=== PATIENT | female | born 1985 | race Caucasian/White ===

== ENCOUNTER 2018-02-27 14:25 | Emergency (ER) | payer BC ==
--- NOTE | 2018-02-27 15:35 | EDM.PDOC ---
ED HPI GENERAL MEDICAL PROBLEM - General Chief Complaint: Back Pain or Injury Stated Complaint: BACK PAIN Time Seen by Provider: 02/27/18 15:19 Source of Information: Reports: Patient, RN Notes Reviewed History Limitations: Reports: No Limitations - History of Present Illness INITIAL COMMENTS - FREE TEXT/NARRATIVE: The patient states that she was getting ready to lift a heavy object at work around 13:30 today, and reached out towards it, but had not yet actively begun lifting, when she developed lower back pain - the patient indicates her upper lumbar area, bilaterally. She states that it feels like a muscle spasm. The pain is made better if she leans forward, whether she is sitting or standing, and it is made worse if she is upright. The pain does not radiate at all. No urinary symptoms. No prior similar symptoms. The patient states that she took 2 Tylenol around 13:30. The patient does not have a PCP. 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 Lower Back Pain Score (Numeric/FACES): 8 - Related Data Allergies Allergy/AdvReac Type Severity Reaction Status Date / Time No Known Allergies Allergy Verified 02/27/18 14:53 Home Meds: Home Meds Orphenadrine [Norflex] 1 tab PO Q12H PRN #10 tab.er 02/27/18 [Rx] Past Medical History Respiratory History: Reports: Asthma Endocrine/Metabolic History: Reports: Obesity/BMI 30+ - Infectious Disease History Infectious Disease History: Reports: Chicken Pox - Past Surgical History HEENT Surgical History: Reports: Oral Surgery (wisdom teeth extraction), Tonsillectomy Musculoskeletal Surgical History: Reports: ORIF (Left ankle + subsequent removal of hardware) Social & Family History - Tobacco Use Smoking Status *Q: Former Smoker Years of Tobacco use: 15 Packs/Tins Daily: 0.2 Month/Year Tobacco Last Used: Quit Jan 2017 - Caffeine Use Caffeine Use: Reports: Coffee, Energy Drinks, Soda, Tea - Alcohol Use Alcohol Use History: Yes Alcohol Use Frequency: Rarely - Recreational Drug Use Recreational Drug Use: No - Living Situation & Occupation Living situation: Reports: , with Spouse 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 ED EXAM,LOWER BACK PAIN/INJURY - Physical Exam Exam: See Below Exam Limited By: No Limitations General Appearance: Alert, WD/WN, No Apparent Distress Eye Exam: Bilateral Eye: EOMI, Normal Inspection Ears: Normal External Exam, Hearing Grossly Normal Nose: Normal Inspection Throat/Mouth: Normal Inspection, Normal Lips, Normal Voice, No Airway Compromise Head: Atraumatic, Normocephalic Neck: Normal Inspection, Full Range of Motion Respiratory/Chest: No Respiratory Distress, Lungs Clear, Normal Breath Sounds, No Accessory Muscle Use Cardiovascular: Normal Peripheral Pulses, Regular Rate, Rhythm, No Gallop, No JVD, No Murmur, No Rub GI/Abdominal: Normal Bowel Sounds, Soft, Non-Tender, No Organomegaly, No Distention, No Abnormal Bruit, No Mass, Other (Obese) (Female) Exam: Deferred Rectal (Female) Exam: Deferred Back Exam: Normal Inspection, Full Range of Motion, Other (Straight leg raise to about 80, inducing only back pain without radiation, bilaterally). No: CVA Tenderness (L), CVA Tenderness (R), Decreased Range of Motion, Paraspinal Tenderness, Vertebral Tenderness Extremities: Normal Inspection, Normal Range of Motion, Normal Capillary Refill Neurological: Alert, No Motor/Sensory Deficits, Oriented x 3 Psychiatric: Normal Affect Skin Exam: Warm, Dry, Intact, Normal Color, No Rash Course - Vital Signs Last Recorded V/S: Last Vital Signs Temp 36.6 C 02/27/18 14:47 Pulse 61 02/27/18 14:47 Resp 15 02/27/18 14:47 BP 153/124 H 02/27/18 14:47 Pulse Ox 99 02/27/18 14:47 - Orders/Labs/Meds Labs: Laboratory Tests 02/27/18 02/27/18 Range/Units 15:37 15:39 Urine Color Yellow (Yellow) Urine Appearance Clear (Clear) Urine pH 5.5 (5.0-8.0) Ur Specific [place] > or = 1.030 (1.005-1.030) Urine Protein Negative (Negative) Urine Glucose (UA) Negative (Negative) Urine Ketones Negative (Negative) Urine Occult Blood Negative (Negative) Urine Nitrite Negative (Negative) Urine Bilirubin Negative (Negative) Urine Urobilinogen 0.2 (0.2-1.0) Ur Leukocyte Esterase Negative (Negative) Urine RBC 0-5 (0-5) /hpf Urine WBC 0-5 (0-5) /hpf Ur Epithelial Cells 0-5 (0-5) /hpf Urine Bacteria Few (FEW) /hpf Urine Mucus Few (FEW) /hpf Urine HCG, Qual Negative (NEGATIVE) Meds: Medications Discontinued Medications Generic Name Dose Route Start Last Admin Trade Name Nancie PRN Reason Stop Dose Admin Ibuprofen 600 mg 02/27/18 16:27 02/27/18 16:34 Motrin PO 02/27/18 16:28 600 mg ONETIME ONE Administration Orphenadrine Citrate 100 mg 02/27/18 16:24 02/27/18 16:34 Norflex PO 02/27/18 16:25 100 mg ONETIME STA Administration - Re-Assessments/Exams Free Text/Narrative Re-Assessment/Exam: 02/27/18 15:33 The patient appears to have a muscle spasm in her upper lumbar region. Her physical examination is not consistent with that of a herniated intervertebral disc. I've asked the patient to provide a urine sample just to make sure that she does not have a UTI or hematuria, suggestive of a stone, that she is not , but if everything is normal, I will start her on a muscle relaxant. 02/27/18 16:28 The patient's urinalysis is normal, with no suggestion of a UTI or hematuria, and her urine is negative. I have therefore ordered Norflex and ibuprofen, and will discharge the patient home with a prescription for Norflex. Departure - Departure Time of Disposition: 16:28 Disposition: Home, Self-Care 01 Condition: Fair Clinical Impression: Back muscle spasm - Discharge Information *PRESCRIPTION DRUG MONITORING PROGRAM REVIEWED*: Not Applicable *COPY OF PRESCRIPTION DRUG MONITORING REPORT IN PATIENT JACKIE: Not Applicable Prescriptions: Orphenadrine [Norflex] 1 tab PO Q12H PRN #10 tab.er PRN Reason: Muscle Spasm Instructions: Muscle Cramps and Spasms, [id number] Referrals: Irena Perera MD [Physician] - Forms: ED Department Discharge Additional Instructions: You were seen in the emergency room for low back pain that developed while at work. Workup in the ER included a urinalysis and a test, both of which were normal. You do not have a urinary tract infection, and there is no suggestion that you have a kidney stone. You are not . Based on your history, physical examination, and urine studies, the cause of your low back pain is MOST LIKELY due to a muscle spasm. You have been started on muscle relaxant Norflex. A prescription for Norflex has been sent to the [facility] located in the [employer] [facility]. Take one tablet every 12 hours, starting tomorrow, 02/28/2018, as prescribed. You may also take [id number] ibuprofen, 2-3 tablets (400-600 mg) every 8 hours, with food, as needed for discomfort. Get plenty of rest tonight, but then it is imperative that you stay active, even though you may be sore. Swiming is best, but walking is good, too. Do not just lie in bed. If your symptoms do not improve within a few days, please follow-up with Dr. Irena Perera in the clinic. If any other problems, please do not hesitate to return to the ER.
[2018-02-27] MEDS ORDERED: Orphenadrine 100 MG Tab.ER PO STA (16:24)
[2018-02-27] MEDS ORDERED: Ibuprofen 600 MG Tab PO ONE (16:27)
== END 2018-02-27 16:45 | disposition home or self-care (01) ==
LOC: JD.ED 14:25
DX: M62.830 Muscle spasm of back (principal); E66.9 Obesity, unspecified; Z87.891 Personal history of nicotine dependence; X50.0XXA Overexertion from strenuous movement or load, initial encounter
CPT/HCPCS: 81001; 81025; 99283; A9270

== ENCOUNTER 2018-07-29 05:19 | Emergency (ER) | payer BC ==
[2018-07-29] MEDS ORDERED: Ondansetron 4 MG/2 ML SDV IVPUSH ONE (06:03)
[2018-07-29] MEDS ORDERED: HYDROmorphone 1 MG/ML Syringe IVPUSH STA (06:03)
--- NOTE | 2018-07-29 06:06 | EDM.PDOC ---
<Po Murcia - Last Filed: 07/29/18 06:36> ED HPI GENERAL MEDICAL PROBLEM - General Chief Complaint: Flank Pain Stated Complaint: BACK AND SIDE PAIN Time Seen by Provider: 07/29/18 05:31 Source of Information: Reports: Patient, RN Notes Reviewed History Limitations: Reports: No Limitations - History of Present Illness INITIAL COMMENTS - FREE TEXT/NARRATIVE: The patient states that she was woken around 02:30 this morning with right mid back pain, which, after a short while, radiated around to the right upper quadrant of her abdomen. The pain is crampy and sharp in character. It is constant. The patient states that her pain is made much worse by lying prone, otherwise, she has not identified any modifiers. She has nausea, but has not vomited. No recent constipation or diarrhea. No urinary symptoms. No recent fever. No prior similar symptoms. The patient states that she ate some bread and butter around 01:00. The patient has not taken any [id number] or home remedies to try to treat her symptoms. The patient does not have a PCP. - Related Data Allergies Allergy/AdvReac Type Severity Reaction Status Date / Time No Known Allergies Allergy Verified 07/29/18 05:26 Home Meds: Home Meds Desvenlafaxine Succinate [Pristiq ER] 25 mg PO DAILY 07/29/18 [History] Past Medical History Respiratory History: Reports: Asthma Psychiatric History: Reports: Anxiety, Depression, Other (See Below) (Insomnia) Endocrine/Metabolic History: Reports: Obesity/BMI 30+ - Infectious Disease History Infectious Disease History: Reports: Chicken Pox - Past Surgical History HEENT Surgical History: Reports: Oral Surgery (wisdom teeth extraction), Tonsillectomy Musculoskeletal Surgical History: Reports: ORIF (left ankle, with subsequent removal of hardware) Social & Family History - Tobacco Use Smoking Status *Q: Current Every Day Smoker Years of Tobacco use: 7 Packs/Tins Daily: 0.2 - Caffeine Use Caffeine Use: Reports: Coffee - Alcohol Use Alcohol Use History: Yes Alcohol Use Frequency: Rarely - Recreational Drug Use Recreational Drug Use: No - Living Situation & Occupation Living situation: Reports: , with Spouse 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 ED EXAM, GI/ABD - Physical Exam Exam: See Below Exam Limited By: No Limitations General Appearance: Alert, WD/WN, No Apparent Distress Eyes: Bilateral: Normal Appearance, EOMI Ears: Normal External Exam, Hearing Grossly Normal Nose: Normal Inspection Throat/Mouth: Normal Inspection, Normal Lips, Normal Voice, No Airway Compromise Head: Atraumatic, Normocephalic Neck: Normal Inspection, Full Range of Motion Respiratory/Chest: No Respiratory Distress, Lungs Clear, Normal Breath Sounds, No Accessory Muscle Use Cardiovascular: Normal Peripheral Pulses, Regular Rate, Rhythm, No Gallop, No JVD, No Murmur, No Rub GI/Abdominal Exam: Normal Bowel Sounds, Soft, No Organomegaly, No Distention, No Abnormal Bruit, No Mass, Tender (Right upper quadrant only. Bacon positive. Rovsing sign present, but nontender elsewhere.), Other (Obese) (Female) Exam: Deferred Rectal (Female) Exam: Deferred Back Exam: Normal Inspection, Full Range of Motion. No: CVA Tenderness (L), CVA Tenderness (R) (including to the right mid-back) Extremities: Normal Inspection, Normal Range of Motion, Normal Capillary Refill Neurological: Alert, Oriented, Normal Cognition, No Motor/Sensory Deficits Psychiatric: Normal Affect Skin Exam: Warm, Dry, Intact, Normal Color, No Rash Course - Vital Signs Last Recorded V/S: Last Vital Signs Temp 97.5 F 07/29/18 05:25 Pulse 62 07/29/18 05:25 Resp 20 07/29/18 05:25 BP 152/110 H 07/29/18 05:25 Pulse Ox 98 07/29/18 05:25 - Orders/Labs/Meds Orders: Active Orders 24 hr Category Date Time Status Sodium Chloride 0.9% [Normal Saline] 1,000 ml Med 07/29/18 06:15 Active IV ASDIRECTED Medication Orders Sodium Chloride (Normal Saline) 1,000 mls @ 150 mls/hr IV ASDIRECTED LENNOX Last Admin: 07/29/18 06:26 Dose: 150 mls/hr Labs: Laboratory Tests 07/29/18 07/29/18 07/29/18 Range/Units 05:32 05:32 06:35 WBC 8.02 (3.98-10.04) K/mm3 RBC 5.34 H (3.98-5.22) M/mm3 Hgb 14.2 (11.2-15.7) gm/L Hct 45.5 H (34.1-44.9) % MCV 85.2 (79.4-94.8) fl MCH 26.6 (25.6-32.2) pg MCHC 31.2 L (32.2-35.5) g/dl RDW Std Deviation 46.3 (36.4-46.3) fL Plt Count 255 (182-369) K/mm3 MPV 10.8 (9.4-12.3) fl Neutrophils % (Manual) 60 (40-60) % Band Neutrophils % 0 (0-10) % Lymphocytes % (Manual) 27 (20-40) % Atypical Lymphs % 0 % Monocytes % (Manual) 7 (2-10) % Eosinophils % (Manual) 6 H (0.7-5.8) % Basophils % (Manual) 0 L (0.1-1.2) Platelet Estimate Adequate RBC Morph Comment Normal Sodium (136-145) mEq/L Potassium (3.5-5.1) mEq/L Chloride (98-107) mEq/L Carbon Dioxide (21-32) mEq/L Anion Gap (5-15) BUN (7-18) mg/dL Creatinine (0.55-1.02) mg/dL Est Cr Clr Drug Dosing mL/min Estimated GFR (MDRD) (>60) mL/min BUN/Creatinine Ratio (14-18) Glucose (74-106) mg/dL Calcium (8.5-10.1) mg/dL Total Bilirubin (0.2-1.0) mg/dL AST (15-37) U/L ALT (14-59) U/L Alkaline Phosphatase (46-116) U/L Total Protein (6.4-8.2) g/dl Albumin (3.4-5.0) g/dl Globulin gm/dL Albumin/Globulin Ratio (1-2) Lipase (73-393) U/L Urine Color Yellow (Yellow) Urine Appearance Clear (Clear) Urine pH 5.5 (5.0-8.0) Ur Specific [place] > or = 1.030 (1.005-1.030) Urine Protein Negative (Negative) Urine Glucose (UA) Negative (Negative) Urine Ketones Negative (Negative) Urine Occult Blood Trace-lysed H (Negative) Urine Nitrite Negative (Negative) Urine Bilirubin Negative (Negative) Urine Urobilinogen 0.2 (0.2-1.0) Ur Leukocyte Esterase Negative (Negative) Urine RBC 5-10 H (0-5) /hpf Urine WBC 0-5 (0-5) /hpf Ur Epithelial Cells 5-10 H (0-5) /hpf Amorphous Sediment Few H (NOT SEEN) /hpf Urine Bacteria Few (FEW) /hpf Hyaline Casts 0-5 (0-5) /lpf Urine Mucus Few (FEW) /hpf Urine HCG, Qual Negative (NEGATIVE) 07/29/18 Range/Units 06:35 WBC (3.98-10.04) K/mm3 RBC (3.98-5.22) M/mm3 Hgb (11.2-15.7) gm/L Hct (34.1-44.9) % MCV (79.4-94.8) fl MCH (25.6-32.2) pg MCHC (32.2-35.5) g/dl RDW Std Deviation (36.4-46.3) fL Plt Count (182-369) K/mm3 MPV (9.4-12.3) fl Neutrophils % (Manual) (40-60) % Band Neutrophils % (0-10) % Lymphocytes % (Manual) (20-40) % Atypical Lymphs % % Monocytes % (Manual) (2-10) % Eosinophils % (Manual) (0.7-5.8) % Basophils % (Manual) (0.1-1.2) Platelet Estimate RBC Morph Comment Sodium 142 (136-145) mEq/L Potassium 3.5 (3.5-5.1) mEq/L Chloride 108 H (98-107) mEq/L Carbon Dioxide 25 (21-32) mEq/L Anion Gap 12.5 (5-15) BUN 12 (7-18) mg/dL Creatinine 0.9 (0.55-1.02) mg/dL Est Cr Clr Drug Dosing 74.92 mL/min Estimated GFR (MDRD) > 60 (>60) mL/min BUN/Creatinine Ratio 13.3 L (14-18) Glucose 103 (74-106) mg/dL Calcium 8.4 L (8.5-10.1) mg/dL Total Bilirubin 0.3 (0.2-1.0) mg/dL AST 17 (15-37) U/L ALT 38 (14-59) U/L Alkaline Phosphatase 79 (46-116) U/L Total Protein 6.6 (6.4-8.2) g/dl Albumin 3.4 (3.4-5.0) g/dl Globulin 3.2 gm/dL Albumin/Globulin Ratio 1.1 (1-2) Lipase 128 (73-393) U/L Urine Color (Yellow) Urine Appearance (Clear) Urine pH (5.0-8.0) Ur Specific [place] (1.005-1.030) Urine Protein (Negative) Urine Glucose (UA) (Negative) Urine Ketones (Negative) Urine Occult Blood (Negative) Urine Nitrite (Negative) Urine Bilirubin (Negative) Urine Urobilinogen (0.2-1.0) Ur Leukocyte Esterase (Negative) Urine RBC (0-5) /hpf Urine WBC (0-5) /hpf Ur Epithelial Cells (0-5) /hpf Amorphous Sediment (NOT SEEN) /hpf Urine Bacteria (FEW) /hpf Hyaline Casts (0-5) /lpf Urine Mucus (FEW) /hpf Urine HCG, Qual (NEGATIVE) Meds: Medications Generic Name Dose Route Start Last Admin Trade Name Freq PRN Reason Stop Dose Admin Sodium Chloride 1,000 mls @ 150 mls/hr 07/29/18 06:15 07/29/18 06:26 Normal Saline IV 150 mls/hr ASDIRECTED LENNOX Administration Discontinued Medications Generic Name Dose Route Start Last Admin Trade Name Freq PRN Reason Stop Dose Admin Hydromorphone HCl 1 mg 07/29/18 06:03 07/29/18 06:26 Dilaudid IVPUSH 07/29/18 06:04 1 mg ONETIME STA Administration Iopamidol 100 ml 07/29/18 06:21 07/29/18 07:45 Isovue-300 (61%) IVPUSH 07/29/18 06:22 100 ml ONETIME ONE Administration Ondansetron HCl 4 mg 07/29/18 06:03 07/29/18 06:26 Zofran IVPUSH 07/29/18 06:04 4 mg ONETIME ONE Administration - Re-Assessments/Exams Free Text/Narrative Re-Assessment/Exam: 07/29/18 06:04 There was a delay in ordering tests, as I had to go to a rapid response. Based on the patient's history and physical examination, her right upper quadrant abdominal tenderness radiating through to her right mid-back is most likely due to cholecystitis. I have ordered blood work, including a lipase, to exclude pancreatitis, as well as a urinalysis to exclude a ureterolith. I have ordered a CT scan of the abdomen and pelvis, which may not confirm the diagnosis , but will rule out other causes. If all is negative, the patient can then proceed to an outpatient evaluation, including an ultrasound of the right upper quadrant and a HIDA scan. Unfortunately, because of a shortage of ultrasound technicians, I am not able to order an ultrasound of the right upper quadrant from the emergency department for evaluation for cholecystitis. The patient will be given Dilaudid, Zofran, and IV fluid. 07/29/18 07:[address] Jo Alford, and care of the patient turned over to him at this time, for change of shift. Departure - Departure Disposition: Home, Self-Care 01 Clinical Impression: Polycystic kidney Abdominal pain Qualifiers: Abdominal location: upper abdomen, unspecified Qualified Code(s): R10.10 - Upper abdominal pain, unspecified - Discharge Information Instructions: Polycystic Kidney Disease, Adult, Abdominal Pain, Adult, Easy-to- Read Referrals: PCP,None [Primary Care Provider] - Forms: ED Department Discharge, ED Return to Work/School Form Additional Instructions: rest, clear liquids until this afternoon, than very careful bland diet as tolerated, avoid fatty foods for now. US of Gallbladder early next week, Radiology will call you Tuesday morning to set up a time for that, nothing to eat after midnight the day of your ultrasound. Follow up with you clinic provider 1 to 2 days after your US for recheck and results. Your CT also did show numerous cyst of your R kidney, that is not likely what caused your pain this morning. Do ask your provider for a Urology consult. You may take tylenol and alternate with ibuprofen if needed for further discomfort. <Jared Alford - Last Filed: 07/29/18 09:09> Course - Re-Assessments/Exams Free Text/Narrative Re-Assessment/Exam: 07/29/18 09:06 Have assumed care from Dr Murcia after change of shift. CT of abd shows a polycytic R kidney, probable small stone GB. Her sx and findings on initial exam strongly suggest GB as source of her discomfort this morning. Pain is now gone, abd now soft and nontender, Labs nl. Have written order for outpatient US of GB. Discharge instr. as documented. Departure - Departure Time of Disposition: 22:25 Condition: Fair
[2018-07-29] MEDS ORDERED: Sodium Chloride 0.9% 1,000 ML IV SCH (06:15)
[2018-07-29] MEDS ORDERED: Iopamidol 612 MG/ML 100 ML Bottle IVPUSH ONE (06:21)
--- NOTE | 2018-07-29 08:17 | CT ---
CT abdomen and pelvis Technique: Multiple axial sections were obtained from above the dome of the diaphragm inferiorly through the pubic symphysis. Intravenous and oral contrast was utilized. Delayed images were also obtained through the abdomen and pelvis. Comparison: No prior abdominal imaging. Findings: Right kidney is almost completely replaced with cysts. The cysts cause enlargement of the right kidney with a length of approximately excretion into 16.4 cm. Delayed images shows a small amount of contrast excretion into the collecting system. Left kidney appears normal in size. On delayed images of the left kidney shows excretion into a nondilated ureter with contrast also seen within the bladder. No cystic change is noted within the left kidney. Small portion of the visualized lung bases are clear. Liver contains no focal abnormality. Spleen appears within normal limits. Adrenal glands show no nodule. Pancreas is normal. Gallbladder shows a small intraluminal abnormality most likely representing small gallstone. Aorta shows no aneurysm. No retroperitoneal adenopathy or mesenteric abnormalities are seen. No pelvic mass or adenopathy is seen. Uterus is enlarged and lobulated in appearance compatible with numerous fibroids. Uterus has a length of 17.6 cm. No inflammatory changes seen. No free fluid is seen. Appendix is seen and appears normal in size. Bone window settings were reviewed which appear within normal limits for the patient's age. Impression: 1. Right kidney is enlarged and almost completely replaced with cysts. Majority of contrast excretion occurs from the left kidney which appears normal by CT examination. 2. Enlarged uterus due to diffuse fibroid change. 3. Small gallstone. 4. No additional abnormality is seen on CT study of the abdomen and pelvis. Diagnostic code #3
== END 2018-07-29 09:06 | disposition home or self-care (01) ==
LOC: JD.ED 05:19
DX: Q61.3 Polycystic kidney, unspecified (principal); R10.10 Upper abdominal pain, unspecified; F17.210 Nicotine dependence, cigarettes, uncomplicated; Z79.899 Other long term (current) drug therapy
CPT/HCPCS: 36415; 74177; 80053; 81001; 81025; 83690; 85007; 85027; 96361; 96374; 96375; 99284; J1170; J2405; J7040; Q9967

== ENCOUNTER 2018-09-12 00:31 | Emergency (ER) | payer BC ==
[2018-09-12] MEDS ORDERED: Hyoscyamine 0.125 MG Tab.SL SL ONE ×2 (00:56→01:02)
[2018-09-12] MEDS ORDERED: Metoclopramide 10 MG/2 ML SDV IVPUSH ONE (00:57)
[2018-09-12] MEDS ORDERED: HYDROmorphone 1 MG/ML Syringe IVPUSH ONE (00:58)
[2018-09-12] MEDS ORDERED: Dextrose 5%-0.9% NaCl 1,000 ML IV SCH (01:00)
[2018-09-12] MEDS ORDERED: Ketorolac 30 MG/ML SDV IVPUSH SCH (01:00)
--- NOTE | 2018-09-12 01:01 | EDM.PDOC ---
ED HPI GENERAL MEDICAL PROBLEM - General Chief Complaint: Abdominal Pain Stated Complaint: RIGHT SIDE PAIN Time Seen by Provider: 09/12/18 00:50 Source of Information: Reports: Patient, Family (friend) History Limitations: Reports: No Limitations - History of Present Illness INITIAL COMMENTS - FREE TEXT/NARRATIVE: 32-year-old female presents to the ED with acute onset of severe right upper quadrant abdominal pain underneath her right costal margin radiating along the costal margin to her back to the infra scapular area. Pain came on approximately 2300 hrs. She ate last at 2100 hrs. and had chili. Patient was recently diagnosed with gallstones on August 02 by ultrasound. It was suggested to be present on CT scan done July 30 of this year. The CT scan revealed that she has a very large polycystic right kidney which is nearly completely destroyed by cysts. She has seen Dr. Ray--urologist in [place] and is scheduled to have her right kidney removed with the aid of the [employer] robot in the near future. She has not arranged follow-up for cholecystectomy yet. She is nauseated but is unable to vomit. She did take Zofran 8 mg sublingually without any relief of the nausea. Pain is constant with it intermittently low- grade colicky component. Bowel function has been normal with normal color. Onset: Sudden Onset Date: 09/11/18 Onset Time: 23:00 Duration: Hour(s):, Getting Worse Location: Reports: Abdomen (right upper quadrant of the abdomen.) Quality: Reports: Ache, Pressure, Other (Colicky component to the deep constant aching pain.) Severity: Severe Improves with: Reports: None Worsens with: Reports: None (9 out of 10) Context: Reports: Other (Started about 2 hours after eating some chili last evening). Denies: Activity, Exercise, Lifting, Sick Contact, Trauma Associated Symptoms: Reports: Chest Pain, Loss of Appetite, Nausea/Vomiting. Denies: Confusion, Cough, cough w sputum, Fever/Chills, Headaches, Malaise, Rash , Seizure, Shortness of Breath (Nausea without vomiting), Syncope, Weakness Treatments BAGGAGE CHECKER: Reports: Other (see below) Right Upper Abdominal Pain Score (Numeric/FACES): 8 - Related Data Allergies Allergy/AdvReac Type Severity Reaction Status Date / Time No Known Allergies Allergy Verified 09/12/18 00:51 Home Meds: Home Meds Desvenlafaxine Succinate [Pristiq ER] 25 mg PO DAILY 07/29/18 [History] Hyoscyamine Sulfate [Levsin-Sl] 0.125 mg SL ASDIRECTED #8 tab.subl 09/12/18 [Rx] Past Medical History Respiratory History: Reports: Asthma Gastrointestinal History: Reports: Cholelithiasis (Diagnosed with cholelithiasis suspected on CT scan done July 30 but confirmed by ultrasound to show multiple gallstones on August 02 of this year.) Genitourinary History: Reports: Other (See Below) (Recently discovered on July 30 of this year by CT exam to have severe polycystic right kidney. It appears that the kidney is not producing any significant amount of urine. It needs to be resected and she has seen urology in [place] in this regard.) Psychiatric History: Reports: Anxiety, Depression Endocrine/Metabolic History: Reports: Obesity/BMI 30+ - Infectious Disease History Infectious Disease History: Reports: Chicken Pox - Past Surgical History HEENT Surgical History: Reports: Oral Surgery, Tonsillectomy Musculoskeletal Surgical History: Reports: ORIF Social & Family History - Tobacco Use Smoking Status *Q: Current Every Day Smoker Years of Tobacco use: 10 Packs/Tins Daily: 0.2 - Caffeine Use Caffeine Use: Reports: Coffee - Living Situation & Occupation Living situation: Reports: , with Spouse 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 Denies: Fever, Chills, Malaise, Weakness, Fatigue, Weight Loss HEENT: Reports: No Symptoms Respiratory: Reports: Shortness of Breath Cardiovascular: Reports: No Symptoms (Then take a full deep breath as it aggravates the right upper quadrant abdominal pain) Endocrine: Reports: No Symptoms GI/Abdominal: Reports: Abdominal Pain (See history of present illness.) : Reports: No Symptoms Musculoskeletal: Reports: No Symptoms Skin: Reports: No Symptoms Neurological: Reports: No Symptoms Psychiatric: Reports: No Symptoms Hematologic/Lymphatic: Reports: No Symptoms Immunologic: Reports: No Symptoms ED EXAM, GI/ABD - Physical Exam Exam: See Below Exam Limited By: No Limitations General Appearance: Alert, WD/WN, Moderate Distress Eyes: Bilateral: Normal Appearance (No scleral icterus.) Respiratory/Chest: No Respiratory Distress, Lungs Clear, Normal Breath Sounds, No Accessory Muscle Use, Respiratory Distress Cardiovascular: Normal Peripheral Pulses, Regular Rate, Rhythm, No Edema, No Gallop, No Murmur, No Rub GI/Abdominal Exam: Soft, No Mass, Guarding (Very tender to palpation right upper quadrant of the abdomen with positive Bacon sign), Tender, Abnormal Bowel Sounds (Bowel sounds are decreased throughout the abdomen.), Other (I tried to palpate her kidney but her abdominal orifice quite large and I could not definitively palpate a kidney mass.). No: Rebound Back Exam: Normal Inspection, CVA Tenderness (R). No: Full Range of Motion, CVA Tenderness (L), Decreased Range of Motion Extremities: Normal Inspection, Normal Range of Motion, Non-Tender, No Pedal Edema Neurological: Alert, Oriented, CN II-XII Intact, Normal Cognition Psychiatric: Normal Affect, Normal Mood Skin Exam: Warm, Dry, Intact, Normal Color, No Rash Course - Vital Signs Last Recorded V/S: Last Vital Signs Temp 35.8 C 09/12/18 00:48 Pulse 84 09/12/18 00:48 Resp 16 09/12/18 00:48 BP 161/100 H 09/12/18 00:48 Pulse Ox 98 09/12/18 00:48 - Orders/Labs/Meds Orders: Active Orders 24 hr Category Date Time Status Dextrose 5%-0.9% NaCl [Dextrose 5%-Normal Saline] 1,000 Med 09/12/18 01:00 Active ml IV ASDIRECTED Ketorolac [Toradol] Med 09/12/18 01:00 Active 30 mg IVPUSH ONETIME Medication Orders Dextrose/Sodium Chloride (Dextrose 5%-Normal Saline) 1,000 mls @ 150 mls/hr IV ASDIRECTED LENNOX Last Admin: 09/12/18 01:05 Dose: 150 mls/hr Ketorolac Tromethamine (Toradol) 30 mg IVPUSH ONETIME LENNOX Last Admin: 09/12/18 01:10 Dose: 30 mg Labs: Laboratory Tests 09/12/18 09/12/18 Range/Units 01:05 01:05 WBC 12.44 H (3.98-10.04) K/mm3 RBC 5.17 (3.98-5.22) M/mm3 Hgb 13.6 (11.2-15.7) gm/L Hct 43.2 (34.1-44.9) % MCV 83.6 (79.4-94.8) fl MCH 26.3 (25.6-32.2) pg MCHC 31.5 L (32.2-35.5) g/dl RDW Std Deviation 46.0 (36.4-46.3) fL Plt Count 277 (182-369) K/mm3 MPV 10.9 (9.4-12.3) fl Neutrophils % (Manual) 55 (40-60) % Band Neutrophils % 0 (0-10) % Lymphocytes % (Manual) 34 (20-40) % Atypical Lymphs % 0 % Monocytes % (Manual) 8 (2-10) % Eosinophils % (Manual) 3 (0.7-5.8) % Basophils % (Manual) 0 L (0.1-1.2) Platelet Estimate Adequate Plt Morphology Comment Normal Hypochromasia 1+ slight RBC Morph Comment Not Reportable Sodium 141 (136-145) mEq/L Potassium 3.9 (3.5-5.1) mEq/L Chloride 108 H (98-107) mEq/L Carbon Dioxide 23 (21-32) mEq/L Anion Gap 13.9 (5-15) BUN 13 (7-18) mg/dL Creatinine 0.9 (0.55-1.02) mg/dL Est Cr Clr Drug Dosing 71.63 mL/min Estimated GFR (MDRD) > 60 (>60) mL/min BUN/Creatinine Ratio 14.4 (14-18) Glucose 110 H (74-106) mg/dL Calcium 9.0 (8.5-10.1) mg/dL Total Bilirubin 0.3 (0.2-1.0) mg/dL GGT 21 (5-55) U/L AST 21 (15-37) U/L ALT 47 (14-59) U/L Alkaline Phosphatase 72 (46-116) U/L C-Reactive Protein 1.9 H* (<1.0) mg/dL Total Protein 6.7 (6.4-8.2) g/dl Albumin 3.6 (3.4-5.0) g/dl Globulin 3.1 gm/dL Albumin/Globulin Ratio 1.2 (1-2) Amylase 43 (25-115) U/L Meds: Medications Generic Name Dose Route Start Last Admin Trade Name Nancie PRN Reason Stop Dose Admin Dextrose/Sodium Chloride 1,000 mls @ 150 mls/hr 09/12/18 01:00 09/12/18 01:05 Dextrose 5%-Normal Saline IV 150 mls/hr ASDIRECTED LENNOX Administration Ketorolac Tromethamine 30 mg 09/12/18 01:00 09/12/18 01:10 Toradol IVPUSH 30 mg ONETIME LENNOX Administration Discontinued Medications Generic Name Dose Route Start Last Admin Trade Name Nancie PRN Reason Stop Dose Admin Hydromorphone HCl 1 mg 09/12/18 00:58 09/12/18 01:08 Dilaudid IVPUSH 09/12/18 00:59 1 mg ONETIME ONE Administration Hyoscyamine 0.125 mg 09/12/18 00:56 09/12/18 01:06 Hyomax-Sl SL 09/12/18 00:57 0.125 mg ONETIME ONE Administration Hyoscyamine 0.125 mg 09/12/18 01:02 09/12/18 01:12 Hyomax-Sl SL 09/12/18 01:03 0.125 mg ONETIME ONE Administration Metoclopramide HCl 7.5 mg 09/12/18 00:57 09/12/18 01:06 Reglan IVPUSH 09/12/18 00:58 7.5 mg ONETIME ONE Administration - Radiology Interpretation Free Text/Narrative:: 32-year-old female presents to the ED with acute onset of severe right upper quadrant abdominal pain under her costal margin radiating along the back to the infrascapular area characteristic of biliary colic. Patient was recently diagnosed with gallstones on July [address] scan and confirmed by ultrasound August 02 of this year. She was also discovered to have a severe polycystic right kidney which needs to be resected and she has already had 6 sought out urology consultation in this regard. She ate chili about 2100 hrs. and developed pain 2 hours later and her pain is characteristic of pericolic as has her examination of the abdomen with acute tenderness of the right upper quadrant under the costal margin with a positive Bacon's sign. Plan Levsin 0.125 mg sublingual now and repeat again in 6-7 minutes. IV will be established with D5 normal saline 150 mils per hour. Will be given Dilaudid 1 mg IV with Reglan 7.5 mg IV and Toradol 30 mg IV. Routine labs including serum amylase and GGT to be obtained - Re-Assessments/Exams Free Text/Narrative Re-Assessment/Exam: 09/12/18 01:42 Patient reports pain is pretty well gone. No further nausea. Leaves the Levsin tablets did help significantly relieve her pain. Labs are still pending. 09/12/18 02:17 White count is elevated at 12.44. Differential shows 55% neutrophils and no band cells. Hemoglobin is 13.6 with hematocrit of 43.2. Bili count is 277,000. Sodium is 141 with a potassium of 3.9. Chloride is 108 with a bicarbonate of 23. And a gap is 13.9. BUN is 13 with a creatinine of 0.9. GFR remains greater than 60. Glucose is 110. Calcium is 9.0. Liver function is normal with a bilirubin of 0.3 GGT is 21. Alk phosphatase is 72 showing no signs of biliary tree obstruction. Amylase is 43 C-reactive protein is mildly elevated at 1.9. Total protein is 6.7 with an albumin fraction of 3.6. Repeat dominant examination reveals that she is pretty well pain free. She will therefore be discharged to home since there is no evidence of biliary tree obstruction. She was told that her kidney will have to come out through an open procedure not with the aid of [employer] robot. There is therefore that she could have her gallbladder removed by general surgery at the same time she has her nephrectomy. It was probably unlikely that she could have a laparoscopic cholecystectomy is the cystic kidney would obstruct visualization of the gallbladder. Departure - Departure Time of Disposition: 02:22 Disposition: Home, Self-Care 01 Condition: Fair Clinical Impression: Recurrent biliary colic Abdominal pain Qualifiers: Abdominal location: upper abdomen, unspecified Qualified Code(s): R10.10 - Upper abdominal pain, unspecified - Discharge Information *PRESCRIPTION DRUG MONITORING PROGRAM REVIEWED*: Not Applicable *COPY OF PRESCRIPTION DRUG MONITORING REPORT IN PATIENT JACKIE: Not Applicable Prescriptions: Hyoscyamine Sulfate [Levsin-Sl] 0.125 mg SL ASDIRECTED #8 tab.subl Instructions: Cholelithiasis, [id number] Referrals: PCP,None [Primary Care Provider] - Forms: ED Department Discharge, ED Return to Work/School Form Additional Instructions: Evaluation the emergency room this morning in regards to acute onset of severe right upper quadrant abdominal pain radiating around to your back characteristic of gallbladder attack. Recent investigations by way of CT scan and ultrasound confirm that she do have numerous gallstones in the gallbladder. He also has a severely polycystic right kidney which would obstruct the ability to remove the gallbladder laparoscopically. Examination today was compatible with acute gallbladder attack. Lab tests revealed no significant abnormalities or evidence of biliary tree obstruction. Treated with intravenous fluids as well as Dilaudid 1 mg with Reglan 7.5 mg for pain and nausea relief and Toradol 30 mg. He also received 2 tablets of Levsin under the tongue which did seem to alleviate a good portion of your pain. I will write a prescription for this medication to be used if you develop another attack. 1 tablet initially and if only partial improvement or relief of pain in the in 10 minutes may repeat that one tablet. Taking more than 2 tablets usually does ineffectual. Of course follow-up with surgeons to planned to have your kidney and gallbladder removed. - My Orders Last 24 Hours: My Active Orders 09/12/18 01:00 Dextrose 5%-0.9% NaCl [Dextrose 5%-Normal Saline] 1,000 ml IV ASDIRECTED Ketorolac [Toradol] 30 mg IVPUSH ONETIME - Assessment/Plan Last 24 Hours: My Active Orders 09/12/18 01:00 Dextrose 5%-0.9% NaCl [Dextrose 5%-Normal Saline] 1,000 ml IV ASDIRECTED Ketorolac [Toradol] 30 mg IVPUSH ONETIME
== END 2018-09-12 02:46 | disposition home or self-care (01) ==
LOC: JD.ED 00:31
DX: K80.50 Calculus of bile duct without cholangitis or cholecystitis without obstruction (principal); F17.210 Nicotine dependence, cigarettes, uncomplicated; F41.9 Anxiety disorder, unspecified; F32.9 Major depressive disorder, single episode, unspecified; J45.909 Unspecified asthma, uncomplicated; Z79.899 Other long term (current) drug therapy
CPT/HCPCS: 36415; 80053; 82150; 82977; 85007; 85027; 86140; 96361; 96374; 96375; 99284; A9270; J1170; J1885; J2765; J7042

== ENCOUNTER 2018-11-13 13:08 | Emergency (ER) | payer BC ==
--- NOTE | 2018-11-13 13:38 | EDM.PDOC ---
ED HPI GENERAL MEDICAL PROBLEM - General Chief Complaint: Abdominal Pain Stated Complaint: UPPER ABDOMINAL PAIN Time Seen by Provider: 11/13/18 13:35 - History of Present Illness INITIAL COMMENTS - FREE TEXT/NARRATIVE: 33-year-old female presents emergency room with abdominal pain. This is been getting worse since yesterday the patient has cholelithiasis and is scheduled for cholecystectomy this coming Tuesday along with a right-sided nephrectomy due to a dysfunctional kidney secondary to multiple kidney cysts the patient is unsure of the exact terminology they used. She's had several gallbladder attacks over the last several months. She takes intermittent hycosamine for this and it hasn't helped this time. She denies any fevers has chills when the pain gets bad. She denies this time Treatments CLOSING AGENT: Reports: Other Medication(s) Other Treatments CLOSING AGENT: hydrocodone Right Upper Abdomen Pain Score (Numeric/FACES): 8 - Related Data Allergies Allergy/AdvReac Type Severity Reaction Status Date / Time No Known Allergies Allergy Verified 11/13/18 13:24 Home Meds: Home Meds Acetaminophen/HYDROcodone [Mason 325-5 MG] 1 - 2 tab PO Q6H PRN #15 tablet 11/13 [Rx] Hyoscyamine Sulfate [Levsin-Sl] 0.125 mg SL ASDIRECTED PRN 11/13/18 [History] Lisinopril 10 mg PO DAILY 11/13/18 [History] Ondansetron [Zofran ODT] 4 mg PO Q6H PRN #10 tab.dis 11/13/18 [Rx] Past Medical History Respiratory History: Reports: Asthma Gastrointestinal History: Reports: Cholelithiasis (Diagnosed with cholelithiasis suspected on CT scan done July 30 but confirmed by ultrasound to show multiple gallstones on August 02 of this year.) Genitourinary History: Reports: Other (See Below) (Recently discovered on July 30 of this year by CT exam to have severe polycystic right kidney. It appears that the kidney is not producing any significant amount of urine. It needs to be resected and she has seen urology in [place] in this regard.) Psychiatric History: Reports: Anxiety, Depression Endocrine/Metabolic History: Reports: Obesity/BMI 30+ - Infectious Disease History Infectious Disease History: Reports: Chicken Pox - Past Surgical History HEENT Surgical History: Reports: Oral Surgery, Tonsillectomy Musculoskeletal Surgical History: Reports: ORIF Social & Family History - Tobacco Use Smoking Status *Q: Current Every Day Smoker Years of Tobacco use: 10 Packs/Tins Daily: 1 - Caffeine Use Caffeine Use: Reports: None - Recreational Drug Use Recreational Drug Use: No - Living Situation & Occupation Living situation: Reports: , with Spouse 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 Denies: Fever HEENT: Reports: No Symptoms Respiratory: Reports: No Symptoms Cardiovascular: Reports: No Symptoms Endocrine: Reports: No Symptoms GI/Abdominal: Reports: Abdominal Pain, Nausea. Denies: Constipation, Diarrhea, Vomiting : Reports: No Symptoms Musculoskeletal: Reports: No Symptoms Skin: Reports: No Symptoms Neurological: Reports: No Symptoms ED EXAM, GI/ABD - Physical Exam Exam: See Below Exam Limited By: No Limitations General Appearance: Alert, No Apparent Distress Head: Atraumatic, Normocephalic Neck: Normal Inspection, Supple, Non-Tender, Full Range of Motion Respiratory/Chest: No Respiratory Distress, Lungs Clear, Normal Breath Sounds Cardiovascular: Regular Rate, Rhythm, No Edema, No Murmur GI/Abdominal Exam: Normal Bowel Sounds, Soft, Tender, Other (Right upper quadrant discomfort with palpation more so in the right upper quadrant minimal in epigastric region left upper quadrant normal as is the lower quadrants). No : Guarding, Rigid, Rebound Back Exam: Normal Inspection, Other (She does describe the pain is coming from her back and radiating to the right upper quadrant. This is typical for her.). No: CVA Tenderness (L), CVA Tenderness (R) Course - Vital Signs Last Recorded V/S: Last Vital Signs Temp 36.5 C 11/13/18 13:20 Pulse 66 11/13/18 13:20 Resp 20 11/13/18 13:20 BP 141/100 H 11/13/18 13:20 Pulse Ox 97 11/13/18 13:20 - Orders/Labs/Meds Orders: Active Orders 24 hr Category Date Time Status BASIC METABOLIC PANEL,BMP [CHEM] Stat Lab 11/13/18 14:25 Results HEPATIC FUNCTION PANEL,HFP [CHEM] Stat Lab 11/13/18 14:25 Results LIPASE [CHEM] Stat Lab 11/13/18 14:25 Results Sodium Chloride 0.9% [Normal Saline] 1,000 ml Med 11/13/18 14:00 Active IV ASDIRECTED Medication Orders Sodium Chloride (Normal Saline) 1,000 mls @ 150 mls/hr IV ASDIRECTED LENNOX Last Admin: 11/13/18 14:42 Dose: 150 mls/hr Labs: Laboratory Tests 11/13/18 11/13/18 11/13/18 Range/Units 14:25 14:25 15:48 WBC 8.86 (3.98-10.04) K/mm3 RBC 5.05 (3.98-5.22) M/mm3 Hgb 13.2 (11.2-15.7) gm/L Hct 41.5 (34.1-44.9) % MCV 82.2 (79.4-94.8) fl MCH 26.1 (25.6-32.2) pg MCHC 31.8 L (32.2-35.5) g/dl RDW Std Deviation 48.9 H (36.4-46.3) fL Plt Count 276 (182-369) K/mm3 MPV 10.8 (9.4-12.3) fl Neutrophils % (Manual) 60 (40-60) % Band Neutrophils % 0 (0-10) % Lymphocytes % (Manual) 27 (20-40) % Atypical Lymphs % 0 % Monocytes % (Manual) 4 (2-10) % Eosinophils % (Manual) 8 H (0.7-5.8) % Basophils % (Manual) 1 (0.1-1.2) Platelet Estimate Adequate RBC Morph Comment Normal Sodium 142 (136-145) mEq/L Potassium 3.8 (3.5-5.1) mEq/L Chloride 106 (98-107) mEq/L Carbon Dioxide 23 (21-32) mEq/L Anion Gap 16.8 H (5-15) BUN 14 (7-18) mg/dL Creatinine 0.8 (0.55-1.02) mg/dL Est Cr Clr Drug Dosing 83.51 mL/min Estimated GFR (MDRD) > 60 (>60) mL/min BUN/Creatinine Ratio 17.5 (14-18) Glucose 107 H (74-106) mg/dL Calcium 9.3 (8.5-10.1) mg/dL Total Bilirubin 0.4 (0.2-1.0) mg/dL AST 30 (15-37) U/L ALT 42 (14-59) U/L Alkaline Phosphatase 73 (46-116) U/L Total Protein 6.8 (6.4-8.2) g/dl Albumin 3.7 (3.4-5.0) g/dl Globulin 3.1 gm/dL Albumin/Globulin Ratio 1.2 (1-2) Lipase 127 (73-393) U/L Urine Color Yellow (Yellow) Urine Appearance Clear (Clear) Urine pH 5.5 (5.0-8.0) Ur Specific Mccammon > or = 1.030 (1.005-1.030) Urine Protein Negative (Negative) Urine Glucose (UA) Negative (Negative) Urine Ketones Negative (Negative) Urine Occult Blood Negative (Negative) Urine Nitrite Negative (Negative) Urine Bilirubin Negative (Negative) Urine Urobilinogen 0.2 (0.2-1.0) Ur Leukocyte Esterase Negative (Negative) Urine RBC 0-5 (0-5) /hpf Urine WBC 0-5 (0-5) /hpf Ur Squamous Epith Cells 0-5 (0-5) /hpf Urine Bacteria Few (FEW) /hpf Urine Mucus Moderate H (FEW) /hpf Urine HCG, Qual (NEGATIVE) 11/13/18 Range/Units 15:48 WBC (3.98-10.04) K/mm3 RBC (3.98-5.22) M/mm3 Hgb (11.2-15.7) gm/L Hct (34.1-44.9) % MCV (79.4-94.8) fl MCH (25.6-32.2) pg MCHC (32.2-35.5) g/dl RDW Std Deviation (36.4-46.3) fL Plt Count (182-369) K/mm3 MPV (9.4-12.3) fl Neutrophils % (Manual) (40-60) % Band Neutrophils % (0-10) % Lymphocytes % (Manual) (20-40) % Atypical Lymphs % % Monocytes % (Manual) (2-10) % Eosinophils % (Manual) (0.7-5.8) % Basophils % (Manual) (0.1-1.2) Platelet Estimate RBC Morph Comment Sodium (136-145) mEq/L Potassium (3.5-5.1) mEq/L Chloride (98-107) mEq/L Carbon Dioxide (21-32) mEq/L Anion Gap (5-15) BUN (7-18) mg/dL Creatinine (0.55-1.02) mg/dL Est Cr Clr Drug Dosing mL/min Estimated GFR (MDRD) (>60) mL/min BUN/Creatinine Ratio (14-18) Glucose (74-106) mg/dL Calcium (8.5-10.1) mg/dL Total Bilirubin (0.2-1.0) mg/dL AST (15-37) U/L ALT (14-59) U/L Alkaline Phosphatase (46-116) U/L Total Protein (6.4-8.2) g/dl Albumin (3.4-5.0) g/dl Globulin gm/dL Albumin/Globulin Ratio (1-2) Lipase (73-393) U/L Urine Color (Yellow) Urine Appearance (Clear) Urine pH (5.0-8.0) Ur Specific Mccammon (1.005-1.030) Urine Protein (Negative) Urine Glucose (UA) (Negative) Urine Ketones (Negative) Urine Occult Blood (Negative) Urine Nitrite (Negative) Urine Bilirubin (Negative) Urine Urobilinogen (0.2-1.0) Ur Leukocyte Esterase (Negative) Urine RBC (0-5) /hpf Urine WBC (0-5) /hpf Ur Squamous Epith Cells (0-5) /hpf Urine Bacteria (FEW) /hpf Urine Mucus (FEW) /hpf Urine HCG, Qual Negative (NEGATIVE) Meds: Medications Generic Name Dose Route Start Last Admin Trade Name Freq PRN Reason Stop Dose Admin Sodium Chloride 1,000 mls @ 150 mls/hr 11/13/18 14:00 11/13/18 14:42 Normal Saline IV 150 mls/hr ASDIRECTED LENNOX Administration Discontinued Medications Generic Name Dose Route Start Last Admin Trade Name Freq PRN Reason Stop Dose Admin Hydrocodone Bitart/Acetaminophen 1 tab 11/13/18 16:22 11/13/18 16:27 Mason 325-5 Mg PO 11/13/18 16:23 1 tab ONETIME ONE Administration Fentanyl 50 mcg 11/13/18 13:56 11/13/18 14:43 Sublimaze IVPUSH 11/13/18 13:57 50 mcg ONETIME ONE Administration Fentanyl 50 mcg 11/13/18 16:23 11/13/18 16:27 Sublimaze IVPUSH 11/13/18 16:24 50 mcg ONETIME ONE Administration Ondansetron HCl 4 mg 11/13/18 13:56 11/13/18 14:43 Zofran IVPUSH 11/13/18 13:57 4 mg ONETIME ONE Administration - Re-Assessments/Exams Free Text/Narrative Re-Assessment/Exam: 11/13/18 15:49 Patient is doing well at this time urine just obtained awaiting urinalysis hCG and both direct and indirect bilirubin 11/13/18 17:10 Awaiting on the direct and indirect bilirubin apparently there is a mechanical issue with the lab and this will not be fixed until late tonight. We'll go ahead and discharge the patient and call her if these come back grossly abnormal. She will be discharged with a few hydrocodone and Zofran Departure - Departure Time of Disposition: 17:11 Disposition: Home, Self-Care 01 Clinical Impression: Biliary colic, Recurrent biliary colic - Discharge Information Prescriptions: Acetaminophen/HYDROcodone [Mason 325-5 MG] 1 - 2 tab PO Q6H PRN #15 tablet PRN Reason: Abdominal Pain Ondansetron [Zofran ODT] 4 mg PO Q6H PRN #10 tab.dis PRN Reason: Nausea/Vomiting Referrals: Nissa Holder PA [Primary Care Provider] - Forms: ED Department Discharge Additional Instructions: Return to the emergency room with any questions problems worsening symptoms. Follow-up for your surgery as scheduled the end of this week. Use the hydrocodone for pain and Zofran for nausea and vomiting as directed - My Orders Last 24 Hours: My Active Orders 11/13/18 14:00 Sodium Chloride 0.9% [Normal Saline] 1,000 ml IV ASDIRECTED 11/13/18 14:25 BASIC METABOLIC PANEL,BMP [CHEM] Stat HEPATIC FUNCTION PANEL,HFP [CHEM] Stat LIPASE [CHEM] Stat - Assessment/Plan Last 24 Hours: My Active Orders 11/13/18 14:00 Sodium Chloride 0.9% [Normal Saline] 1,000 ml IV ASDIRECTED 11/13/18 14:25 BASIC METABOLIC PANEL,BMP [CHEM] Stat HEPATIC FUNCTION PANEL,HFP [CHEM] Stat LIPASE [CHEM] Stat
[2018-11-13] MEDS ORDERED: fentaNYL 100 MCG/2 ML SDV IVPUSH ONE ×2 (13:56→16:23)
[2018-11-13] MEDS ORDERED: Ondansetron 4 MG/2 ML SDV IVPUSH ONE (13:56)
[2018-11-13] MEDS ORDERED: Sodium Chloride 0.9% 1,000 ML IV SCH (14:00)
[2018-11-13] MEDS ORDERED: Acetaminophen/HYDROcodone 325-5 MG Tab PO ONE (16:22)
== END 2018-11-13 17:25 | disposition home or self-care (01) ==
LOC: JD.ED 13:08
DX: K80.50 Calculus of bile duct without cholangitis or cholecystitis without obstruction (principal); F17.210 Nicotine dependence, cigarettes, uncomplicated; F41.9 Anxiety disorder, unspecified; F32.9 Major depressive disorder, single episode, unspecified; J45.909 Unspecified asthma, uncomplicated; Z79.899 Other long term (current) drug therapy
CPT/HCPCS: 36415; 80048; 80076; 81001; 81025; 83690; 85007; 85027; 96361; 96374; 96375; 96376; 99284; A9270; J2405; J3010; J7040

== ENCOUNTER 2018-11-25 09:38 | Emergency (ER) | payer BC ==
[2018-11-25] MEDS ORDERED: cefTRIAXone 1 GM, Lidocaine 1% 2.1 ML IM SCH ×2 (11:00)
--- NOTE | 2018-11-25 11:02 | EDM.PDOC ---
ED HPI GENERAL MEDICAL PROBLEM - General Chief Complaint: Skin Complaint Stated Complaint: CHECK SURGICAL INCISIONS Time Seen by Provider: 11/25/18 10:35 Source of Information: Reports: Patient History Limitations: Reports: No Limitations - History of Present Illness INITIAL COMMENTS - FREE TEXT/NARRATIVE: The patient presents with redness and itching to surgical incision sites. She had her right kidney and gallbladder removed on 11/17/[address] Carlos in [place] at [facility]. The kidney was much larger due to cysts and she had lots of pain. It was not clear if the gallbladder or kidney were causing the pain. She did great but had some redness around her lower incision. She was started on some bactrim. She still has the redness and it has spread a little more. She also has some itching to the lower abdomen. She has tried some benadryl cream last night and some allergy meds. She did take a warm shower last night and she did get some relief. She has no fever, chills, cough , or increased abdominal pain. Onset: Gradual Duration: Day(s): (8) Location: Reports: Abdomen Quality: Reports: Burning (with itching) Severity: Mild Improves with: Reports: None Worsens with: Reports: None Associated Symptoms: Reports: No Other Symptoms - Related Data Allergies Allergy/AdvReac Type Severity Reaction Status Date / Time No Known Allergies Allergy Verified 11/13/18 13:24 Home Meds: Home Meds Lisinopril 10 mg PO DAILY 11/13/18 [History] Ondansetron [Zofran ODT] 4 mg PO Q6H PRN #10 tab.dis 11/13/18 [Rx] Albuterol Sulfate [Proair Hfa] 1 puff INH DAILY 11/25/18 [History] Albuterol [Ventolin HFA] 1 puff INH DAILY 11/25/18 [History] Cephalexin [Keflex] 500 mg PO QID #20 capsule 11/25/18 [Rx] Sennosides [Senna] 8.6 mg PO DAILY 11/25/18 [History] Sulfamethoxazole/Trimethoprim [Sulfamethoxazole-Tmp Ds Tablet] 1 each PO BID [History] Past Medical History Cardiovascular History: Reports: Hypertension Respiratory History: Reports: Asthma Gastrointestinal History: Reports: Cholelithiasis Genitourinary History: Reports: Other (See Below) Other Genitourinary History: 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." Neurological History: Reports: None Psychiatric History: Reports: Anxiety, Depression Endocrine/Metabolic History: Reports: Obesity/BMI 30+ Hematologic History: Reports: None Immunologic History: Reports: None Oncologic (Cancer) History: Reports: None Dermatologic History: Reports: None - Infectious Disease History Infectious Disease History: Reports: Chicken Pox - Past Surgical History Head Surgeries/Procedures: Reports: None HEENT Surgical History: Reports: Oral Surgery, Tonsillectomy GI Surgical History: Reports: Cholecystectomy Musculoskeletal Surgical History: Reports: ORIF Social & Family History - Tobacco Use Smoking Status *Q: Never Smoker - Caffeine Use Caffeine Use: Reports: None - Recreational Drug Use Recreational Drug Use: No - Living Situation & Occupation Living situation: Reports: , with Spouse Occupation: Employed ([employer] de[employer]) ED ROS GENERAL - Review of Systems Review Of Systems: See Below Constitutional: Reports: No Symptoms HEENT: Reports: No Symptoms Respiratory: Reports: No Symptoms Cardiovascular: Reports: No Symptoms Endocrine: Reports: No Symptoms GI/Abdominal: Reports: Other (Redness to the lower abdominal incision) : Reports: No Symptoms Musculoskeletal: Reports: No Symptoms Skin: Reports: No Symptoms Neurological: Reports: No Symptoms ED EXAM, SKIN/RASH Exam: See Below Exam Limited By: No Limitations General Appearance: Alert, No Apparent Distress Ears: Normal External Exam Nose: Normal Inspection Head: Atraumatic, Normocephalic Neck: Normal Inspection Respiratory/Chest: No Respiratory Distress, Lungs Clear, Normal Breath Sounds Cardiovascular: Regular Rate, Rhythm, No Edema, No Murmur GI/Abdominal: Soft, No Organomegaly, No Mass, Other (Very mild tenderness to the lower incision with redness around it that extends into her lower abdomen with redness and some swelling. It does extend past the margins drawn in the hospital.) Course - Vital Signs Last Recorded V/S: Last Vital Signs Temp 97.2 F 11/25/18 10:20 Pulse 68 11/25/18 10:20 Resp 16 11/25/18 10:20 BP 143/83 H 11/25/18 10:20 Pulse Ox 98 11/25/18 10:20 - Orders/Labs/Meds Orders: Active Orders 24 hr Category Date Time Status cefTRIAXone [Rocephin] 1 gm Med 11/25/18 11:00 Active Lidocaine 1% [Xylocaine 1%] 2.1 ml IM Q24H Medication Orders Ceftriaxone Sodium 1 gm/ (Lidocaine HCl 2.1 ml) 0 gm IM Q24H [facility] Meds: Medications Generic Name Dose Route Start Last Admin Trade Name Nancie PRN Reason Stop Dose Admin Ceftriaxone Sodium 1 gm/ 0 gm 11/25/18 11:00 Lidocaine HCl 2.1 ml IM Q24H [facility] - Re-Assessments/Exams Free Text/Narrative Re-Assessment/Exam: 11/25/18 11:11 This does not appear to be an allergic reaction but more cellulitis. I will give her a shot of rocephin and get her on some keflex. She is following up on Tuesday. Departure - Departure Time of Disposition: 11:15 Disposition: Home, Self-Care 01 Condition: Good Clinical Impression: Cellulitis Qualifiers: Site of cellulitis: trunk Site of cellulitis of trunk: abdominal wall Qualified Code(s): L03.311 - Cellulitis of abdominal wall - Discharge Information *PRESCRIPTION DRUG MONITORING PROGRAM REVIEWED*: Not Applicable *COPY OF PRESCRIPTION DRUG MONITORING REPORT IN PATIENT JACKIE: Not Applicable Prescriptions: Cephalexin [Keflex] 500 mg PO QID #20 capsule Referrals: PCP,None [Primary Care Provider] - Additional Instructions: Take pepcid daily for 5 days. Keep taking your current medications. Take the keflex 4 times per day and follow up with your doctor on Tuesday. Please return if you are worse. You could try a heating pad on your abdomen that may help. - My Orders Last 24 Hours: My Active Orders 11/25/18 11:00 cefTRIAXone [Rocephin] 1 gm Lidocaine 1% [Xylocaine 1%] 2.1 ml IM Q24H - Assessment/Plan Last 24 Hours: My Active Orders 11/25/18 11:00 cefTRIAXone [Rocephin] 1 gm Lidocaine 1% [Xylocaine 1%] 2.1 ml IM Q24H
== END 2018-11-25 11:40 | disposition home or self-care (01) ==
LOC: JD.ED 09:38
DX: L03.311 Cellulitis of abdominal wall (principal); I10 Essential (primary) hypertension; J45.909 Unspecified asthma, uncomplicated; F41.9 Anxiety disorder, unspecified; F32.9 Major depressive disorder, single episode, unspecified; E66.9 Obesity, unspecified; Z79.899 Other long term (current) drug therapy; Z68.41 Body mass index [BMI] 40.0-44.9, adult
CPT/HCPCS: 96372; 99283; J0696; J2001

== ENCOUNTER 2019-10-13 12:05 | Emergency (ER) | payer BC ==
[2019-10-13] MEDS ORDERED: HYDROmorphone 1 MG/ML Syringe IVPUSH STA (13:00)
[2019-10-13] MEDS ORDERED: Sodium Chloride 0.9% 1,000 ML IV SCH (13:00)
[2019-10-13] MEDS ORDERED: Ondansetron 4 MG/2 ML SDV IVPUSH ONE (13:00)
--- NOTE | 2019-10-13 13:11 | EDM.PDOC ---
ED HPI GENERAL MEDICAL PROBLEM - General Chief Complaint: Abdominal Pain Stated Complaint: LOW ABD PAIN AND BURNING SENSATION Time Seen by Provider: 10/13/19 12:49 Source of Information: Reports: Patient, RN Notes Reviewed History Limitations: Reports: No Limitations - History of Present Illness INITIAL COMMENTS - FREE TEXT/NARRATIVE: Patient is a 33-year-old female who presents to the ED for the evaluation of her abdominal pain. Patient states that since October 09, shethHas been having some pains with her left lower abdomen. She states that yesterday during the day it seemed to be fairly okay, but did worsen last night. She characterizes as a burning/tearing/pressure in nature. Worse when she bends over or "bears down". She denies any sort of fever/chills, nausea/vomiting/diarrhea. She notes that her last regular bowel movement she thought was Tuesday. She states that she has had her gallbladder taken out, so she has an issue with loose stools regularly but did not note them to be more loose than normal. Patient states she is able to tolerate oral foods and fluids, and states she has no chance of as she is a lesbian and to a female. Patient denies any urinary issues, or any thoughts of any STDs at this time. She states that her period is not regular, she was on the Depakote shot for uterine fibroids, and her last Depakote shot was May 11 she has not had a regular period since then. Patient does note that she has had her right kidney removed as well due to dysplastic kidney disease, and had her gallbladder and a uterine fibroid removed as well. Otherwise she denies any sort of medical history. She does not take any regular medications, and denies taking any other medications for the pain, she cannot take ibuprofen, she did not think Tylenol would do much for the pain. - Related Data Allergies Allergy/AdvReac Type Severity Reaction Status Date / Time No Known Allergies Allergy Verified 10/13/19 12:25 Home Meds: Home Meds Lisinopril 10 mg PO DAILY 11/13/18 [History] Ondansetron [Zofran ODT] 4 mg PO Q6H PRN #10 tab.dis 11/13/18 [Rx] Albuterol Sulfate [Proair Hfa] 1 puff INH DAILY 11/25/18 [History] Albuterol [Ventolin HFA] 1 puff INH DAILY 11/25/18 [History] Sennosides [Senna] 8.6 mg PO DAILY 11/25/18 [History] Sulfamethoxazole/Trimethoprim [Sulfamethoxazole-Tmp Ds Tablet] 1 each PO BID [History] cephALEXin [Keflex] 500 mg PO QID #20 capsule 11/25/18 [Rx] traMADol [Ultram] 50 mg PO Q6H PRN #20 tab 10/13/19 [Rx] Past Medical History Cardiovascular History: Reports: Hypertension Respiratory History: Reports: Asthma Gastrointestinal History: Reports: Cholelithiasis, Chronic Diarrhea (d/t cholecystectomy) Genitourinary History: Reports: Other (See Below) Other Genitourinary History: 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." 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 Psychiatric History: Reports: Anxiety, Depression Endocrine/Metabolic History: Reports: Obesity/BMI 30+ - Infectious Disease History Infectious Disease History: Reports: Chicken Pox - Past Surgical History HEENT Surgical History: Reports: Oral Surgery, Tonsillectomy GI Surgical History: Reports: Cholecystectomy Female Surgical History: Reports: Other (See Below) Other Female Surgeries/Procedures: fibroid removed from uterus Musculoskeletal Surgical History: Reports: ORIF Social & Family History - Family History Family Medical History: Noncontributory - Tobacco Use Smoking Status *Q: Never Smoker - Caffeine Use Caffeine Use: Reports: None - Sexual History Sexual History: Reports: Same Sex Partner, Sexually Active - Living Situation & Occupation Living situation: Reports: , with Spouse 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 ED EXAM, GI/ABD - Physical Exam Exam: See Below Exam Limited By: No Limitations General Appearance: Alert, WD/WN, No Apparent Distress, Obese Eyes: Bilateral: Normal Appearance Throat/Mouth: Normal Inspection, Normal Lips, Normal Teeth, Normal Gums, Normal Oropharynx, Normal Voice, No Airway Compromise Head: Atraumatic, Normocephalic Neck: Normal Inspection Respiratory/Chest: No Respiratory Distress, Lungs Clear, Normal Breath Sounds, No Accessory Muscle Use, Chest Non-Tender Cardiovascular: Normal Peripheral Pulses, Regular Rate, Rhythm, No Murmur GI/Abdominal Exam: Normal Bowel Sounds, Soft, No Distention, No Mass, Tender ( Left lower quadrant mainly. She states that the pain is worsened with intra- abdominal pressure changes.) Extremities: Normal Inspection, Normal Capillary Refill Neurological: Alert, Oriented, Normal Cognition, No Motor/Sensory Deficits Psychiatric: Normal Affect, Normal Mood Skin Exam: Warm, Dry, Intact, Normal Color, No Rash Course - Vital Signs Last Recorded V/S: Last Vital Signs Temp 98.5 F 10/13/19 12:26 Pulse 78 10/13/19 12:26 Resp 16 10/13/19 12:26 BP 145/91 H 10/13/19 12:26 Pulse Ox 97 10/13/19 12:26 - Orders/Labs/Meds Orders: Active Orders 24 hr Category Date Time Status Sodium Chloride 0.9% [Normal Saline] 1,000 ml Med 10/13/19 13:00 Ordered IV ASDIRECTED Sodium Chloride 0.9% [Saline Flush] Med 10/13/19 14:43 Active 10 ml FLUSH ONETIME PRN Medication Orders Sodium Chloride (Normal Saline) 1,000 mls @ 999 mls/hr IV ASDIRECTED LENNOX Last Admin: 10/13/19 13:20 Dose: 999 mls/hr Sodium Chloride (Saline Flush) 10 ml FLUSH ONETIME PRN PRN Reason: Keep Vein Open Last Admin: 10/13/19 15:00 Dose: 10 ml Labs: Laboratory Tests 10/13/19 10/13/19 10/13/19 Range/Units 13:35 13:35 13:46 WBC 7.47 (3.98-10.04) K/mm3 RBC 4.73 (3.98-5.22) M/mm3 Hgb 13.1 (11.2-15.7) gm/dl Hct 40.3 (34.1-44.9) % MCV 85.2 D (79.4-94.8) fl MCH 27.7 (25.6-32.2) pg MCHC 32.5 (32.2-35.5) g/dl RDW Std Deviation 43.0 (36.4-46.3) fL Plt Count 255 (182-369) K/mm3 MPV 10.2 (9.4-12.3) fl Neutrophils % (Manual) 52 (40-60) % Band Neutrophils % 0 (0-10) % Lymphocytes % (Manual) 34 (20-40) % Atypical Lymphs % 0 % Monocytes % (Manual) 5 (2-10) % Eosinophils % (Manual) 9 H (0.7-5.8) % Basophils % (Manual) 0 L (0.1-1.2) Platelet Estimate Adequate RBC Morph Comment Normal Sodium 141 (136-145) mEq/L Potassium 4.3 (3.5-5.1) mEq/L Chloride 109 H (98-107) mEq/L Carbon Dioxide 24 (21-32) mEq/L Anion Gap 12.3 (5-15) BUN 12 (7-18) mg/dL Creatinine 1.0 (0.55-1.02) mg/dL Est Cr Clr Drug Dosing 66.81 mL/min Estimated GFR (MDRD) > 60 (>60) mL/min BUN/Creatinine Ratio 12.0 L (14-18) Glucose 94 (74-106) mg/dL Calcium 8.1 L (8.5-10.1) mg/dL Total Bilirubin 0.6 (0.2-1.0) mg/dL AST 16 (15-37) U/L ALT 27 (14-59) U/L Alkaline Phosphatase 89 (46-116) U/L Total Protein 6.7 (6.4-8.2) g/dl Albumin 3.3 L (3.4-5.0) g/dl Globulin 3.4 gm/dL Albumin/Globulin Ratio 1.0 (1-2) Urine Color Yellow (Yellow) Urine Appearance Clear (Clear) Urine pH 5.5 (5.0-8.0) Ur Specific [place] > or = 1.030 (1.005-1.030) Urine Protein Negative (Negative) Urine Glucose (UA) Negative (Negative) Urine Ketones Negative (Negative) Urine Occult Blood Negative (Negative) Urine Nitrite Negative (Negative) Urine Bilirubin Negative (Negative) Urine Urobilinogen 0.2 (0.2-1.0) Ur Leukocyte Esterase Negative (Negative) Urine RBC 0-5 (0-5) /hpf Urine WBC 0-5 (0-5) /hpf Ur Squamous Epith Cells 5-10 H (0-5) /hpf Urine Bacteria Not seen (FEW) /hpf Urine Mucus Not seen (FEW) /hpf Meds: Medications Generic Name Dose Route Start Last Admin Trade Name Nancie PRN Reason Stop Dose Admin Sodium Chloride 1,000 mls @ 999 mls/hr 10/13/19 13:00 10/13/19 13:20 Normal Saline IV 999 mls/hr ASDIRECTED LENNOX Administration Sodium Chloride 10 ml 10/13/19 14:43 10/13/19 15:00 Saline Flush FLUSH 10 ml ONETIME PRN Administration Keep Vein Open Discontinued Medications Generic Name Dose Route Start Last Admin Trade Name Nancie PRN Reason Stop Dose Admin Diatrizoate Meglum/Diatrizoate Sod 120 ml 10/13/19 14:43 10/13/19 15:00 Gastrografin 37% PO 10/13/19 14:44 120 ml ONETIME ONE Administration Hydromorphone HCl 1 mg 10/13/19 13:00 10/13/19 13:18 Dilaudid IVPUSH 10/13/19 13:01 1 mg ONETIME STA Administration Iopamidol 100 ml 10/13/19 14:43 10/13/19 15:00 Isovue-300 (61%) IVPUSH 10/13/19 14:44 100 ml ONETIME ONE Administration Ondansetron HCl 4 mg 10/13/19 13:00 10/13/19 13:18 Zofran IVPUSH 10/13/19 13:01 4 mg ONETIME ONE Administration - Re-Assessments/Exams Free Text/Narrative Re-Assessment/Exam: 10/13/19 13:11 Patient presents to the ED for the evaluation of her lower abdominal pain. Have ordered IV to be placed, some labs and abdomen pelvis CT for further evaluation. 10/13/19 15:49 Laboratory evaluation has returned, and is fairly unremarkable. Patient's CT is done as well, and demonstrates no acute findings. I was able to appreciate quite a bit of stool throughout the entire colon on the CT, which could be compounding some of the situation. Likely her pain is due to a chest wall strain or musculoskeletal pain in nature. Will treat as such and have her follow-up on Tuesday if symptoms are not much better Departure - Departure Time of Disposition: 15:59 Disposition: Home, Self-Care 01 Condition: Good Clinical Impression: Abdominal wall pain in left lower quadrant Constipation Qualifiers: Constipation type: other constipation type Qualified Code(s): K59.09 - Other constipation - Discharge Information *PRESCRIPTION DRUG MONITORING PROGRAM REVIEWED*: Yes *COPY OF PRESCRIPTION DRUG MONITORING REPORT IN PATIENT JACKIE: No Prescriptions: traMADol [Ultram] 50 mg PO Q6H PRN #20 tab PRN Reason: Pain Instructions: Constipation, Adult, [id number] Referrals: PCP,None [Primary Care Provider] - Forms: ED Department Discharge Additional Instructions: You were evaluated in the ER today regarding your left lower abdominal pain. You had some laboratory evaluation done, and an abdominal pelvis CT. You are not suffering from appendicitis at today's visit, and your kidney labs were within normal limits as well. Your CT did demonstrate that you have a quite a bit of stool in your colon, the oral contrast you received in the ER should help provide a "bowel cleanse". You also have been given a bottle of magnesium citrate to take to produce more bowel movements to help further clean you out. You may try half bottle, if you do not have a rather large bowel movement in a few hours, please repeat with the other half bottle. It is likely that your pain could be due from abdominal muscle wall pain. You have been given a prescription for tramadol, please take 1 tab every 6 hours as needed for further pain relief. This medication does work on the same receptors as opioid pain medication, so it still has a propensity to be addictive, and can cause constipation. You might want to think about incorporating a stool softener like MiraLAX into your daily regimen to help further promote bowel health. If your pain is not much better in a few days time recommend you have it reevaluated. Please return to the ER at any time if symptoms should change or worsen. Sepsis Event Note - Evaluation Sepsis Screening Result: No Definite Risk - Focused Exam Vital Signs: Vital Signs Temp Pulse Resp BP Pulse Ox 10/13/19 12:26 98.5 F 78 16 145/91 H 97 Date Exam was Performed: 10/13/19 Time Exam was Performed: 15:59 - My Orders Last 24 Hours: My Active Orders 10/13/19 13:00 Sodium Chloride 0.9% [Normal Saline] 1,000 ml IV ASDIRECTED 10/13/19 14:43 Sodium Chloride 0.9% [Saline Flush] 10 ml FLUSH ONETIME PRN - Assessment/Plan Last 24 Hours: My Active Orders 10/13/19 13:00 Sodium Chloride 0.9% [Normal Saline] 1,000 ml IV ASDIRECTED 10/13/19 14:43 Sodium Chloride 0.9% [Saline Flush] 10 ml FLUSH ONETIME PRN
[2019-10-13] MEDS ORDERED: Diatrizoate Meglumine/Diatrizoate Sodium 37% 120 ML Bottle PO ONE (14:43)
[2019-10-13] MEDS ORDERED: Iopamidol 612 MG/ML 100 ML Bottle IVPUSH ONE (14:43)
[2019-10-13] MEDS ORDERED: Sodium Chloride 0.9% 10 ML Syringe FLUSH PRN (14:43)
--- NOTE | 2019-10-13 15:37 | CT ---
CT abdomen and pelvis Technique: Multiple axial sections were obtained from above the dome of the diaphragm inferiorly through the pubic symphysis. Intravenous and oral contrast was utilized. Delayed images were obtained through the bladder. Comparison: Prior CT abdomen and pelvis study of 07/29/18. Findings: Interval right sided nephrectomy is noted. Left kidney appears normal in appearance. Visualized lung bases show nothing acute. Liver shows no focal parenchymal abnormality. Spleen appears within normal limits. Adrenal glands show no nodule. Pancreas is within normal limits. Surgical clips are seen from prior cholecystectomy. Aorta shows no aneurysm. No retroperitoneal adenopathy or mesenteric abnormalities are seen. Appendix is seen which is normal in size. No pelvic mass or adenopathy is appreciated. Uterus appears within normal limits on current study and was enlarged previously. No pelvic mass or adenopathy is seen. No free fluid or inflammatory change is appreciated. Delayed images shows contrast excretion from the left kidney into the bladder. No abdominal wall hernia is seen. Bone window settings were reviewed which appear within normal limits for the patient's age. Impression: 1. Interval right sided nephrectomy from prior study. 2. Uterus appears normal and was enlarged on prior exam. 3. Nothing acute is appreciated on CT study of the abdomen and pelvis. Diagnostic code #1 This report was dictated in MDT
[2019-10-13] MEDS ORDERED: Magnesium Citrate Solution 296 ML Bottle PO ONE (16:00)
== END 2019-10-13 16:15 | disposition home or self-care (01) ==
LOC: JD.ED 12:05
DX: R10.32 Left lower quadrant pain (principal); K59.09 Other constipation; I10 Essential (primary) hypertension; J45.909 Unspecified asthma, uncomplicated; E66.9 Obesity, unspecified; Z68.41 Body mass index [BMI] 40.0-44.9, adult; Z79.899 Other long term (current) drug therapy
CPT/HCPCS: 36415; 74177; 80053; 81001; 85007; 85027; 96361; 96374; 96375; 99284; A9270; J1170; J2405; J7030; Q9963; Q9967; 99283

== ENCOUNTER 2019-12-21 07:24 | Day surgery (SDC) | payer BC ==
[~2019-12-21 07:24] MED LIST: Lactated Ringers 1,000 ML IV SCH; Lidocaine 1% 4 ML ONE; Lidocaine 1%/Sod Bicarbonate in NS 8.4% 1 ML Syringe IDERM PRN; Midazolam 1 MG/ML 2 ML SDV ONE; Propofol 200 MG/20 ML SDV ONE; Sodium Chloride 0.9% 10 ML Syringe FLUSH PRN; fentaNYL 100 MCG/2 ML SDV ONE
[2019-12-21] MEDS ORDERED: Scopolamine 1.5 MG Transdermal Patch TOP ONE (07:31)
[2019-12-21] MEDS ORDERED: Albuterol 0.083% 2.5 MG/3 ML Neb Soln NEB ONE (07:31)
--- NOTE | 2019-12-21 07:58 | PCM.PREANE ---
Preanesthetic Assessment - Procedure Proposed Procedure: Left Bunionectomy with osteotomy and internal fixation - Anesthesia/Transfusion/Family Hx Anesthesia History: Prior Anesthesia Reaction Type of Anesthesia Reaction: Excessive Nausea/Vomiting Family History of Anesthesia Reaction: No - Review of Systems General: No Symptoms Pulmonary: No Symptoms (Asthma, controlled with medical management. ) Cardiovascular: No Symptoms Gastrointestinal: No Symptoms Neurological: No Symptoms Other: Reports: None (Obesity. BMI 46.), Depression, Anxiety - Physical Assessment NPO Status Date: 12/20/19 NPO Status Time: 23:00 Vital Signs: 97.2F 70 16 121/79 97% Weight: 116.573 kg ASA Class: 3 Mental Status: Alert & Oriented x3 Airway Class: Mallampati = 3 Dentition: Reports: Normal Dentition Thyro-Mental Finger Breadths: 3 Mouth Opening Finger Breadths: 3 ROM/Head Extension: Full Lungs: Clear to Auscultation, Normal Respiratory Effort Cardiovascular: Regular Rate, Regular Rhythm - Allergies Allergies/Adverse Reactions: Allergies Allergy/AdvReac Type Severity Reaction Status Date / Time No Known Allergies Allergy Verified 10/13/19 12:25 - Anesthesia Plan Pre-Op Medication Ordered: Other (Scopalamine Patch, Albuterol Nebulizer Treatme nt) - Acknowledgements Anesthesia Type Planned: General Anesthesia (If needed per surgeon request. 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 Neurological History: Reports: None Psychiatric History: Reports: Anxiety, Depression Endocrine/Metabolic History: Reports: Obesity/BMI 30+ Hematologic History: Reports: None Immunologic History: Reports: None Oncologic (Cancer) History: Reports: None Dermatologic History: Reports: None - Infectious Disease History Infectious Disease History: Reports: Chicken Pox - Past Surgical History HEENT Surgical History: Reports: Oral Surgery, Tonsillectomy GI Surgical History: Reports: Cholecystectomy Female Surgical History: Reports: Other (See Below) Other Female Surgeries/Procedures: fibroid removed from uterus Musculoskeletal Surgical History: Reports: ORIF - HOME MEDS Home Medications: Home Meds Lisinopril 10 mg PO DAILY 11/13/18 [History] Ondansetron [Zofran ODT] 4 mg PO Q6H PRN #10 tab.dis 11/13/18 [Rx] Albuterol Sulfate [Proair Hfa] 1 puff INH DAILY 11/25/18 [History] Albuterol [Ventolin HFA] 1 puff INH DAILY 11/25/18 [History] Sennosides [Senna] 8.6 mg PO DAILY 11/25/18 [History] Sulfamethoxazole/Trimethoprim [Sulfamethoxazole-Tmp Ds Tablet] 1 each PO BID 11/25/18 [History] cephALEXin [Keflex] 500 mg PO QID #20 capsule 11/25/18 [Rx] traMADol [Ultram] 50 mg PO Q6H PRN #20 tab 10/13/19 [Rx] - CURRENT (IN HOUSE) MEDS Current Meds: Current Medications Lactated Ringer's (Ringers, Lactated) 1,000 mls @ 125 mls/hr IV ASDIRECTED LENNOX Stop: 12/21/19 23:00 Lidocaine/Sodium Bicarbonate (Buffered Lidocaine 1% In Ns 8.4%) 0.25 ml IDERM ONETIME PRN PRN Reason: Prior to IV Start Stop: 12/21/19 18:00 Sodium Chloride (Saline Flush) 10 ml FLUSH ASDIRECTED PRN PRN Reason: Keep Vein Open Stop: 12/21/19 18:00 Discontinued Medications Albuterol (Proventil Neb Soln) 2.5 mg NEB ONETIME ONE Stop: 12/21/19 07:32 Fentanyl (Sublimaze) Confirm Administered Dose 100 mcg .ROUTE .STK-MED ONE Stop: 12/21/19 07:03 Lidocaine HCl (Xylocaine-Mpf 1%) Confirm Administered Dose 4 mls @ as directed .ROUTE .STK-MED ONE Stop: 12/21/19 07:03 Midazolam HCl (Versed 1 Mg/Ml) Confirm Administered Dose 2 mg .ROUTE .STK-MED ONE Stop: 12/21/19 07:03 Propofol (Diprivan 20 Ml) Confirm Administered Dose 400 mg .ROUTE .STK-MED ONE Stop: 12/21/19 07:03 Scopolamine (Transderm-Scop) 1.5 mg TOP ONETIME ONE Stop: 12/21/19 07:32
[2019-12-21] MEDS ORDERED: ceFAZolin 1 GM Vial ONE (08:23)
[2019-12-21] MEDS ORDERED: Midazolam 1 MG/ML 2 ML SDV ONE (08:25)
[2019-12-21] MEDS ORDERED: fentaNYL 100 MCG/2 ML SDV IVPUSH PRN (08:57)
[2019-12-21] MEDS ORDERED: Ondansetron 4 MG/2 ML SDV ONE (08:58)
[2019-12-21] MEDS: Lidocaine 1% 30 ML SDV ONE ×2 (09:05→09:17)
[2019-12-21] MEDS: Bupivacaine 0.5% 30 ML SDV ONE ×2 (09:16→09:55)
--- NOTE | 2019-12-21 10:12 | PCM48HPAN ---
Post Anesthesia Note - EVALUATION WITHIN 48HRS OF ANESTHETIC Vital Signs in Normal Range: Yes Patient Participated in Evaluation: Yes Respiratory Function Stable: Yes Airway Patent: Yes Cardiovascular Function Stable: Yes Hydration Status Stable: Yes Pain Control Satisfactory: Yes Nausea and Vomiting Control Satisfactory: Yes Mental Status Recovered: Yes (rests- no complaints) Vital Signs: Last Vital Signs Temp 97.2 F 12/21/19 08:22 Pulse 70 12/21/19 08:22 Resp 16 12/21/19 08:22 BP 121/79 12/21/19 08:22 Pulse Ox 97 12/21/19 08:22 1007 60 16 97.0 117/79 98%
--- NOTE | 2019-12-21 10:18 | CR ---
Left foot: 6 fluoroscopic spot views were obtained of the left foot utilizing C-arm device. Comparison: No prior foot exam. Study shows osteotomy within the distal 1st metatarsal shaft. [address] on the final 2 images. Fluoroscopy time given as 10.6 seconds. Impression: 1. Procedural study as described above. Diagnostic code #2 This report was dictated in MDT
--- NOTE | 2019-12-21 10:28 | PCM.OPNOTE ---
- General Post-Op/Procedure Note Pre Op Diagnosis: Painful/Symptomatic HAV bunion deformity, LEFT 1st MTPJ Post-Op Diagnosis: Same Anesthesia Technique: Local, MAC Primary Surgeon: Hector Dawn II Anesthesia Provider: Vishal Butterfield Pathology: none EBL in mLs: 5 Complications: None Condition: Good Free Text/Narrative:: Patient left the OR for recovery with her vital signs stable and vascular intact to digits 1-5 LEFT foot.
--- NOTE | 2019-12-21 11:34 | OR ---
DATE OF OPERATION: 12/21/2019 SURGEON: Hector Dawn II, DPM LOCATION: [facility]. ANESTHESIA: MAC with local block of the left foot. ANESTHESIA PROVIDER: Vishal Butterfield CRNA HEMOSTASIS: Left pneumatic ankle tourniquet at 250 mmHg pressure for 55 minutes. PREOPERATIVE DIAGNOSIS: Painful symptomatic hallux abductovalgus bunion deformity, left 1st metatarsophalangeal joint. POSTOPERATIVE DIAGNOSIS: Painful symptomatic hallux abductovalgus bunion deformity, left 1st metatarsophalangeal joint. OPERATION PERFORMED: Bunionectomy with osteotomy and internal screw fixation, left 1st MTPJ. DESCRIPTION OF PROCEDURE: Upon arrival and admission to the hospital, the patient was examined and cleared for surgery by the assigned anesthesia provider. IV access was then obtained in the preoperative area, after which prophylactic antibiotics consisting of 3 g of Ancef were administered IV piggyback. The patient was then escorted to the operatory room via gurney and assisted with transfer onto the operating room table in a supine position. The patient was given a combination of sedations before receiving 10 mL of 1:1 mixture of 1% lidocaine plain and 0.5% Marcaine plain in the form of local infiltrative block about the left 1st metatarsophalangeal joint. Anesthesia was tested and found to be adequate. The left lower extremity was then wrapped with cotton Webril padding in preparation for a nonsterile pneumatic ankle tourniquet. The left lower extremity was then prepped and draped with the usual aseptic manner with a 1010 drape placed about the pneumatic tourniquet. Left lower extremity was then elevated and exsanguinated with the use of the Esmarch bandage before inflating the pneumatic ankle tourniquet to 250 mmHg pressure. The Esmarch bandage was removed and the left lower extremity was placed back to the level of the operating room table. Attention was then directed to the dorsal medial aspect of the left 1st metatarsophalangeal joint, where an approximately 6 cm curvilinear incision was created medial to the left 1st MTPJ. This was a controlled depth skin incision taken down to the level of subcutaneous structures with care taken to retract the vital neurovascular structures within the area as well as to cauterize and/or ligate all superficial bleeders as deemed necessary. Attention was then directed to the tenocapsular structures overlying the left 1st metatarsophalangeal joint, and a #15 blade on a Yamli knife handle was utilized to create a [id number] linear incision paralleling that of the skin through the capsular tissues of the left 1st metatarsophalangeal joint. The capsule and soft tissue structures were then reflected off the left 1st metatarsophalangeal joint to bring into exposure a hypertrophic medial eminence about the left 1st metatarsal. This was resected with a power sagittal saw from dorsal to plantar. A 1st interspace dissection was undertaken to release the adductor hallucis tendon at the left lateral base of the proximal phalanx of the hallux. The sesamoid apparatus was also loosened and a lateral capsulotomy was created to allow for lateral transverse relocation of the osteotomy capital fragment. After this was undertaken, a McGlamry scoop elevator was utilized to free up all soft tissue attachments to the plantar aspect of the left 1st metatarsal head. The wound was once again copiously lavaged with sterile saline solution. A 0.045 K-wire was loaded onto a wire emergency vehicle driver and then was driven from medial to lateral in a slightly plantarflexed attitude being placed about 0.5 cm from the distal articular cartilage. The 0.045 K-wire would serve as an apical access guide to allow for a long dorsal arm osteotomy of the Arnold bunionectomy to be performed from medial to lateral. The capital fragment was then translocated only 2 mm and impacted upon the stable 1st metatarsal shaft of the left foot. After this was completed, a 0.045 K-wire from a [employer] cannulated headless compression set was then utilized to secure the corrected 1st metatarsal head, while two 0.045 K-wires were loaded onto a wire emergency vehicle driver and were driven perpendicular to the osteotomy from dorsal to plantar to capture and to fixate the osteotomy. Two cannulated headless compression screws measuring 14 mm and 16 mm were then selected and only the near cortex of the osteotomy was then drilled to the same diameter as the screws themselves. The 14 mm and 16 mm, 2.5 cannulated headless compression screws were then advanced to 2-point finger tightness. After this had been completed, the wound was copiously lavaged with sterile saline solution and the power sagittal saw was used to resect any further bony eminence and make it flush with the osteotomy on the medial aspect of the left 1st metatarsal head. Once again, the wound site was then copiously lavaged with sterile saline solution and closure was undertaken utilizing 3-0 Vicryl for deep capsular structures and 4-0 Vicryl for the subcuticular layer, while 4-0 nylon in the form of a running interlocking simple suture knots was then employed. Anesthesia was then consisted of an additional 10 mL of 0.5% Marcaine plain injected about the operatory site and dressings would consist of Betadine-soaked Adaptic gauze, 4x4 gauze, Omi, and an Otis bandage. Upon completion of the surgery at this point, the left pneumatic ankle tourniquet was then deflated and it was noted digits 1 through 5 of the left foot became pink indicating normal vascular perfusion had returned to the left foot. The patient appeared to tolerate the procedure and anesthesia well and left the OR for recovery with her vital signs being stable and vascular status intact digits 1 through 5 of the left foot. There were no apparent complications. In recovery, the patient received written and oral postoperative instructions as well as postoperative pain medication. The patient will ambulate partial weightbearing with an immobilization boot dispensed to her today from postanesthesia care unit to protect and control ankle motion at the left lower extremity. Estimated blood loss of this procedure is less than 10 mL and considered negligible. The patient appeared to tolerate the procedure and anesthesia well and would leave the OR for recovery with her vital signs being stable and vascular status intact digits 1 through 5 of the left foot. There were no apparent or obvious complications. ESTIMATED BLOOD LOSS: CASANDRA /[id number] BRAD
== END 2019-12-21 11:42 | disposition home or self-care (01) ==
LOC: JD.SDS 07:24
PROVIDERS: ATTEND Podiatrist Foot & Ankle Surgery
DX: M20.12 Hallux valgus (acquired), left foot (principal); M21.612 Bunion of left foot; J45.909 Unspecified asthma, uncomplicated; F33.9 Major depressive disorder, recurrent, unspecified; I10 Essential (primary) hypertension; M77.52 Other enthesopathy of left foot and ankle; E66.9 Obesity, unspecified; F41.9 Anxiety disorder, unspecified; Z87.891 Personal history of nicotine dependence; Z79.51 Long term (current) use of inhaled steroids; Z79.899 Other long term (current) drug therapy; Z68.42 Body mass index [BMI] 45.0-49.9, adult
CPT/HCPCS: 28295; 76000; 81025; 94640; A9270; J0690; J2001; J2250; J2405; J2704; J3490; J7120; 01480; J3010